=== PATIENT | male | born 1965 | race Caucasian/White ===

== ENCOUNTER 2016-07-12 15:48 | Emergency (ER) | payer SELFPAY ==
[2016-07-12 15:50] VITALS: BP 167/95; PULSE 110; RESP 20; TEMP 98.8; O2SAT 95
--- NOTE | 2016-07-12 16:00 | PD ---
Physical Exam Date Seen by Provider: July 12, 2016 Time Seen by Provider: 15:57 Narrative 51 YOWM DEPRESSED WITH SUICIDAL THOUGHTS NOW FOR 2-3 DAYS. NO HOMICIDAL IDEATION. H/O SUICIDE ATTEMP IN THE PAST. H/O ALCOHOL ABUSE VS NOTED wating for bed asignment Data Data Last Documented VS Vital Signs Date Time Temp Pulse Resp B/P Pulse Ox O2 Delivery O2 Flow Rate FiO2 07/12/16 15:50 98.8 110 20 167/95 95 Room Air [facility] Medical Record Reviewed: No Supervised Visit with CHRIS: No Scripts No Active Prescriptions or Reported Meds Eder Jimenez July 12, 2016 16:00
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
[2016-07-12] MEDS ORDERED: LORazepam 1 MG TAB PO PRN (16:15)
[2016-07-12] MEDS ORDERED: FLUMAZENIL 0.5 MG/5 ML VIAL IV PUSH PRN (16:15)
[2016-07-12] MEDS ORDERED: LORazepam 2 MG/ML VIAL IV ONE (16:15)
[2016-07-12] MEDS ORDERED: LORazepam 2 MG TAB PO PRN (16:15)
[2016-07-12] MEDS ORDERED: LORazepam 2 MG/ML VIAL IV PUSH PRN ×4 (16:15)
[2016-07-12 17:02] LABS: BASOPHIL # 0.1 TH/MM3 (0-0.2); BASOPHIL % 0.6 % (0.0-2.0); EOSINOPHIL # 0.1 TH/MM3 (0-0.4); EOSINOPHIL % 0.7 % (0.0-4.0); HEMATOCRIT 41.3 % (39.0-51.0); HEMO FLAGS DIFF FINAL; LYMPH % 17.2 % (9.0-44.0); LYMPHOCYTE # 2.2 TH/MM3 (1.0-4.8); MEAN CORPUSCULAR HEMOGLOBIN 30.5 PG (27.0-34.0); MEAN CORPUSCULAR HGB CONC 34.2 % (32.0-36.0); NEUT % 70.5 % (16.0-70.0); PLATELET COUNT 267 TH/MM3 (150-450); RED BLOOD COUNT 4.64 MIL/MM3 (4.50-5.90); RED CELL DISTRIBUTION WIDTH 13.1 % (11.6-17.2); WHITE BLOOD COUNT 12.7 TH/MM3 (4.0-11.0)
[2016-07-12 17:22] LABS: BLOOD, URINE NEG (NEG); COMMENT (UR) CULT NOT INDICATED; CULTURE IF INDICATED CULT NOT INDICATED; GLUCOSE,URINE NEG (NEG); GRANULAR CAST, URINE 4 /lpf; HYALINE CAST, URINE 1 /lpf (RARE); KETONE, URINE 40 mg/dL (NEG); MUCUS URINE FEW /lpf (OCC); NITRITE,URINE NEG (NEG); PH, URINE 5.5 (5.0-8.5); SQUAMOUS EPITHELIAL CELL URINE <1 /hpf (0-5); URINE COLOR YELLOW (YELLW/STRAW)
[2016-07-12 17:28] LABS: ALT (GPT) 23 U/L (12-78); ANION GAP 14 MEQ/L (5-15); AST (GOT) 31 U/L (15-37); BICARBONATE 24.8 MEQ/L (21.0-32.0); BLOOD UREA NITROGEN 15 MG/DL (7-18); CHLORIDE 100 MEQ/L (98-107); GLOMERULAR FILTRATION RATE 96 ML/MIN (>89); POTASSIUM 3.8 MEQ/L (3.5-5.1); SODIUM (NA) 139 MEQ/L (136-145)
[2016-07-12 17:30] LABS: ALKALINE PHOSPHATASE 94 U/L (45-117); TOTAL BILIRUBIN ADULT 0.8 MG/DL (0.2-1.0)
[2016-07-12 18:02] LABS: AMPHETAMINE, URINE NEG (NEG); BARBITURATES, URINE NEG (NEG); COCAINE, URINE POS (NEG)
[2016-07-12 19:06] VITALS: BP 147/81; PULSE 102; RESP 18; TEMP 99.1; O2SAT 95
[2016-07-12 22:37] VITALS: BP 160/80; PULSE 112; RESP 18; TEMP 98.6; O2SAT 95
[2016-07-13 02:57] VITALS: BP 167/79; PULSE 109; RESP 18; O2SAT 96
== END 2016-07-13 04:10 ==
LOC: NEPC 15:48 → NEPJ 07-13 04:10
DX: F10.94 Alcohol use, unspecified with alcohol-induced mood disorder (principal)
CPT/HCPCS: 80053; 80307; 81001; 85025; 96374; 99285; J2060